=== PATIENT | female | born 1985 | race Two or more races ===

== ENCOUNTER 2018-07-10 15:36 | Emergency (ER) | payer MEDICAID ==
[~2018-07-10] VITALS: Ht 165.1 cm; Wt 72.6 kg
[2018-07-10 15:43] VITALS: BP 108/71
[2018-07-10] MEDS ORDERED: diphenhdrAMINE HCL 25 MG CAP PO ONE (17:00)
[2018-07-10] MEDS ORDERED: KETOROLAC TROMETH 60MG/2ML VIAL IM ONE (17:00)
[2018-07-10] MEDS ORDERED: PROMETHAZINE HCL 25 MG/ML 1ML IM ONE (17:00)
== END 2018-07-10 17:49 | disposition home or self-care (01) ==
LOC: ER 15:41
DX: R51 Headache (principal); J45.909 Unspecified asthma, uncomplicated
CPT/HCPCS: 70450; 96372; 99284; J1885; J2550